=== PATIENT | male | born 1985 | race Caucasian/White ===

== ENCOUNTER 2025-06-23 17:06 | Emergency (ER) | payer MEDICAID ==
[~2025-06-23] VITALS: Ht 175.3 cm; Wt 57.5 kg
--- NOTE | 2025-06-23 18:29 | Physician Documentation ---
History of Present Illness ~ Chief Complaint: Medical Clearance Stated Complaint: MED CLEARANCE Time Seen by MD: 18:06 OK to notify your PCP?: Yes Source: patient Mode of Arrival: EMS, Stretcher Exam Limitations: intoxication HPI This is a 39-year-old male who has a history of polysubstance abuse and currently resides at a rehab facility. Evidently the patient today took multiple shots of alcohol as well as Valium and methamphetamine. He was brought in altered. Tetanus within 5 years?: No Medication Reconciliation Allergies: Coded Allergies: No Known Allergies (Unverified , 06/23/25) Physical Exam Vital Signs: Heart Rate: 80, Respiratory Rate: 16, BP: 98/71, Pulse Oximetry: 95, Weight: 57.500 Oxygen Flow Rate: 0 Pulse Oximetry Reflects: adequate oxygenation General Appearance: poorly responsive General Appearance The patient is very drowsy and difficult to arouse though he is arousable. Face: normal Pupils/EOM/Fundus: PERRLA, EOM intact Neck: non-tender, full range of motion Respiratory: lungs clear, normal breath sounds, no respiratory distress Cardiovascular: normal peripheral pulses, regular rate, rhythm, no edema, no gallop, no JVD, no murmur Gastrointestinal: normal palpation, non-tender, bowels sounds present, liver enlargement Skin: warm/dry, normal color Neurologic: oriented x4, cyber legal advisor II-XII nml as tested, memory intact, oriented to time, oriented to person, oriented to place, oriented to events Motor / Sensory: no motor deficit Cerebellar Function: normal Coordination / Gait: normal gait Affect: flat Appearance/Memory/Insight: appropriate appearance, appropriate insight, neat, no memory impairment Thoughts/Hallucinations: normal thought pattern, no apparent hallucination Behavior/Eye contact/Speech: cooperative, good eye contact Progress Results/Orders Reviewed/noted all lab results: Yes Results/Orders Orders - JETHRO MCCOLLUM Straight Cath (06/23/25 ) Completed Orders - JETHRO MCCOLLUM Cbc/Diff (06/23/25 18:22) CMP (06/23/25 18:22) Ethanol (06/23/25 18:22) Drug Screen, Urine (06/23/25 18:22) Salicylate (06/23/25 18:22) Acetaminophen (06/23/25 18:22) Vital Signs 06/23/25 06/23/25 06/23/25 06/23/25 17:11 17:23 17:23 18:14 Pulse 80 82 80 Resp 12 17 17 16 B/P (MAP) 110/85 106/80 (89) 98/71 (80) Pulse Ox 97 95 95 O2 Flow Rate 0 0 0 06/23/25 06/23/25 18:30 20:11 Pulse 78 71 Resp 15 15 B/P (MAP) 109/66 (80) 119/84 Pulse Ox 96 96 O2 Flow Rate 0 Laboratory Tests Test 06/23/25 18:33 06/23/25 18:52 White Blood Count 4.9 Red Blood Count 4.81 Hemoglobin 14.5 Hematocrit 42.6 Mean Corpuscular Volume 88.6 Mean Corpuscular Hemoglobin 30.3 Mean Corpuscular Hemoglobin Concent 34.2 Red Cell Distribution Width 14.2 Platelet Count 198 Mean Platelet Volume 9.6 Neutrophils (%) (Auto) 56.3 Lymphocytes (%) (Auto) 27.7 Monocytes (%) (Auto) 10.1 Eosinophils (%) (Auto) 5.3 Basophils (%) (Auto) 0.6 Neutrophils # (Auto) 2.8 Lymphocytes # (Auto) 1.4 Monocytes # (Auto) 0.5 Eosinophils # (Auto) 0.3 Basophils # (Auto) 0.0 CBC Comment Sodium Level 145 Potassium Level 4.2 Chloride Level 107 Carbon Dioxide Level 29.2 Anion Gap 9 Blood Urea Nitrogen 8 Creatinine 1.11 H Estimated GFR/1.73 m2 74 BUN/Creatinine Ratio 7.2 L Glucose Level 83 Calcium Level 8.6 Total Bilirubin 0.4 Aspartate Amino Transf (AST/SGOT) 18 Alanine Aminotransferase (ALT/SGPT) 29 Alkaline Phosphatase 77 Total Protein 7.0 Albumin 3.7 Globulin 3.3 Albumin/Globulin Ratio 1.1 Chemistry Comments Salicylates Level 1.7 L Acetaminophen Level < 2.0 L Ethyl Alcohol Level < 10 Urine Opiates Screen Negative Urine Methadone Screen Negative Urine Fentanyl Screen Negative Urine Barbiturates Screen Negative Urine Phencyclidine Screen Negative Urine Amphetamines Screen Positive Urine Benzodiazepines Screen Positive Urine Cocaine Screen Negative Urine Cannabinoids Screen Negative Drug Screen Comment Medical Decision Making Additional information obtaine: N/A Findings The patient has workup did not show alcohol in his system though did show benzos and methamphetamine. The patient is lots of rest and when he was awake and able to ambulate and they interact appropriately he was discharged home. Differential Dx:Considerations: Include: Intoxication-Alcohol, Intoxication- Other drug, Personality disorder, Substance abuse disorder, Acute delirium, Closed head injury, Cervical spine injury, Skull fracture, Fracture(s), Abrasion, Contusion, Foreign body, Hematoma, Laceration, Alcohol withdrawl syndrom, Encephalopathy, Hepatitis, Medically stable, Other Differential Diagnosis Acute intoxication. Polysubstance abuse. Departure Disposition: HOME / SELF CARE / HOMELESS Impression: Primary Impression: Polysubstance abuse Condition: Stable Discharge Instructions: Illegal Drug Use Information, Adult Additional Instructions: I suggest you stopped using illicit drugs. Follow up with the primary care physician for recheck this week. Return to the ER for any worsening or concerning symptoms. Luis Carlos Sharp has been medically evaluated and is cleared for a rehab facility/program. Referrals: NO PRIMARY CARE PROVIDER (PCP) Signature Scribe Signature: No scribe Attestation: The note accurately reflects work and decisions made by me.Jethro RAI 06/23/25 20:09 JETHRO MCCOLLUM Jun 23, 2025 18:29
[2025-06-23 18:50] LABS: MEAN PLATELET VOLUME 9.6 FL (7.4-10.4); RED CELL DISTRIBUTION WIDTH 14.2 % (11.5-14.5)
[2025-06-23 19:01] LABS: CREATININE 1.11 MG/DL (0.60-1.10); ETHANOL < 10 MG/DL (<10); TOTAL CARBON DIOXIDE 29.2 MMOL/L (24-32); eCRCL 73 ML/MIN; eGFR 74 ML/MIN
[2025-06-23 19:23] LABS: URINE AMPHETAMINE SCREEN POSITIVE (Neg); URINE BARBITUATE SCREEN NEGATIVE (Neg); URINE BENZODIAZEPINES SCREEN POSITIVE (Neg); URINE CANNABINOID SCREEN NEGATIVE (Neg); URINE COCAINE SCREEN NEGATIVE (Neg); URINE METHADONE SCREEN NEGATIVE (Neg); URINE OPIATE SCREEN NEGATIVE (Neg); URINE PHENCYCLIDINE SCREEN NEGATIVE (Neg)
[2025-06-23 20:11] VITALS: BP 119/84; PULSE 71; RESP 15; O2SAT 96
== END 2025-06-23 20:58 | disposition home or self-care (01) ==
LOC: ER 17:08
DX: F19.11 Other psychoactive substance abuse, in remission (principal)
CPT/HCPCS: 36415; 80053; 80305; 80320; 80329; 85025; 99285; C1758